=== PATIENT | male | born 1990 ===

== ENCOUNTER 2019-09-11 17:01 | Emergency (ER) | payer SELFPAY ==
[~2019-09-11] VITALS: Ht 180.3 cm; Wt 81.8 kg
[2019-09-11] MEDS ORDERED: QUET200T PO (17:36)
[2019-09-11] MEDS ORDERED: DIVA-76 PO (17:36)
[2019-09-11 21:30] VITALS: BP 124/74
== END 2019-09-11 21:51 | disposition home or self-care (01) ==
LOC: EMS 17:04
DX: T69.022A Immersion foot, left foot, initial encounter (principal); T69.021A Immersion foot, right foot, initial encounter; F20.9 Schizophrenia, unspecified; F17.210 Nicotine dependence, cigarettes, uncomplicated; Z88.8 Allergy status to other drugs, medicaments and biological substances; Z79.899 Other long term (current) drug therapy

== ENCOUNTER 2019-10-01 19:07 | Inpatient (IN) | payer MEDICAID ==
[~2019-10-01] VITALS: Ht 185.4 cm; Wt 91.8 kg
[~2019-10-01 19:07] MED LIST: DIVA-76 PO; QUET200T PO
[2019-10-01] MEDS ORDERED: LORazepam 2 MG TABLET PO PRN (20:15)
[2019-10-01] MEDS ORDERED: ZOLPIDEM TARTRATE 10 MG TABLET PO PRN (20:15)
[2019-10-01] MEDS ORDERED: HALOPERIDOL 5 MG TABLET PO PRN (20:15)
[2019-10-01 20:39] VITALS: BP 122/80
[2019-10-01] MEDS: QUEtiapine FUMARATE 100 MG TABLET PO SCH (20:49)
[2019-10-01] MEDS ORDERED: ACETAMINOPHEN 325 MG TABLET PO PRN (21:00)
[2019-10-01] MEDS ORDERED: IBUPROFEN 600 MG TABLET PO PRN (21:00)
[2019-10-01] MEDS ORDERED: INFLUENZA VIRUS VACCINE QVS 2019-20 (3YR+)/PF 60 MCG/0.5 ML SYRINGE IM ONE (21:30)
[2019-10-01] MEDS: NICOTINE 21 MG/24 HOUR PATCH TD SCH (21:30)
[2019-10-02 08:32] VITALS: BP 147/89
[2019-10-02] MEDS: DIVALPROEX SODIUM 500 MG ER TABLET PO SCH (08:39)
[2019-10-02] MEDS: NICOTINE 21 MG/24 HOUR PATCH TD SCH (08:47)
[2019-10-02 18:04] VITALS: BP 120/90
[2019-10-02] MEDS: QUEtiapine FUMARATE 100 MG TABLET PO SCH (20:17)
[2019-10-03 09:14] VITALS: BP 127/85
[2019-10-03] MEDS: NICOTINE 21 MG/24 HOUR PATCH TD SCH (10:42)
[2019-10-03] MEDS: DIVALPROEX SODIUM 500 MG ER TABLET PO SCH (10:42)
[2019-10-03] MEDS: MAG HYDROX/AL HYDROX/SIMETH ES 30 ML SUSPENSION UDCUP PO PRN ×2 (13:59→14:00)
[2019-10-03 16:33] VITALS: BP 124/82
[2019-10-03] MEDS: QUEtiapine FUMARATE 100 MG TABLET PO SCH (20:16)
[2019-10-04] MEDS: NICOTINE 21 MG/24 HOUR PATCH TD SCH (08:19)
[2019-10-04] MEDS: DIVALPROEX SODIUM 500 MG ER TABLET PO SCH (08:19)
[2019-10-04 09:36] VITALS: BP 143/90
[2019-10-04 17:03] VITALS: BP 97/56
[2019-10-04] MEDS: QUEtiapine FUMARATE 100 MG TABLET PO SCH (20:39)
[2019-10-05] MEDS: NICOTINE 21 MG/24 HOUR PATCH TD SCH (08:25)
[2019-10-05] MEDS: DIVALPROEX SODIUM 500 MG ER TABLET PO SCH (08:25)
[2019-10-05 08:35] VITALS: BP 132/90
[2019-10-05] MEDS ORDERED: DIVA500T52 PO (13:47)
[2019-10-05] MEDS ORDERED: QUET400T PO (13:48)
[2019-10-05 17:05] VITALS: BP 145/83
== END 2019-10-05 17:15 | disposition home or self-care (01) | DRG 885 ==
LOC: 3EC 19:45
PROVIDERS: ADMIT Psychiatry & Neurology Child & Adolescent Psychiatry; ATTEND Psychiatry & Neurology Child & Adolescent Psychiatry
DX: F33.2 Major depressive disorder, recurrent severe without psychotic features (principal); R45.851 Suicidal ideations; F20.9 Schizophrenia, unspecified; F12.90 Cannabis use, unspecified, uncomplicated; M54.5 Low back pain; M25.569 Pain in unspecified knee; Z72.0 Tobacco use
CPT/HCPCS: 90686

== ENCOUNTER 2019-10-07 18:56 | Inpatient (IN) | payer MEDICAID ==
[~2019-10-07] VITALS: Ht 185.4 cm; Wt 94.8 kg
[~2019-10-07 18:56] MED LIST changes: -DIVA-76 PO; +DIVA500T52 PO; -QUET200T PO; +QUET400T PO
[2019-10-07 21:09] LABS: BASOPHILS % (AUTO) 0.5 % (0.0-2.0); EOSINOPHILS % (AUTO) 5.7 % (1.0-6.0); HEMATOCRIT 48.3 % (41-53); HEMOGLOBIN 16.2 g/dL (13.5-17.5); LYMPHOCYTES # (AUTO) 1.3 K/uL (1.0-4.8); LYMPHOCYTES % (AUTO) 11.6 % (22.0-44.0); MEAN CORPUSCULAR HEMOGLOBIN 30.3 pg (26.0-34.0); MEAN CORPUSCULAR HGB CONC 33.6 G/dL (31.0-37.0); MEAN CORPUSCULAR VOLUME 90 fL (80-100); MONOCYTES % (AUTO) 8.9 % (2.0-9.0); NEUTROPHILS % (AUTO) 73.3 % (40.0-70.0); PLATELET COUNT (AUTO) 181 K/uL (150-450); RED BLOOD CELL COUNT(AUTO) 5.36 MIL/uL (4.50-5.90); RED CELL DISTRIBUTION WIDTH 14.2 % (11.5-14.5)
[2019-10-07 22:04] LABS: ALANINE AMINOTRANSFERASE 85 U/L (12-78); ALBUMIN 4.4 g/dL (3.4-5.0); ALKALINE PHOSPHATASE 55 U/L (46-116); ANION GAP 8 mmol/L (8-16); ASPARTATE AMINOTRANSFERASE 18 U/L (15-37); BILIRUBIN,TOTAL 0.6 mg/dL (0.1-1.0); CALCIUM, TOTAL 9.4 mg/dL (8.8-10.5); CARBON DIOXIDE 30 mmol/L (22-29); CHLORIDE 104 mmol/L (98-107); GLOMERULAR FILTR. RATE CALC > 60 mL/min (>60); GLUCOSE,RANDOM 106 mg/dL (70-110); POTASSIUM 4.4 mmol/L (3.5-5.1); SODIUM SERUM 142 mmol/L (136-145); UREA NITROGEN, BLOOD 32 mg/dL (7-18); VALPROIC ACID 45 mcg/mL (50-100)
[2019-10-07 23:06] LABS: AMPHET/METH SCREEN,URINE NEGATIVE (NEGATIVE); BARBITURATE SCREEN, URINE NEGATIVE (NEGATIVE); BENZODIAZEPINES SCREEN,URINE NEGATIVE (NEGATIVE); CANNABINOID SCREEN,URINE NEGATIVE (NEGATIVE); COCAINE SCREEN,URINE NEGATIVE (NEGATIVE); METHADONE SCREEN, URINE NEGATIVE (NEGATIVE); OPIATE SCREEN,URINE NEGATIVE (NEGATIVE); PHENCYCLIDINE SCREEN,URINE NEGATIVE (NEGATIVE)
[2019-10-08] MEDS: ZOLPIDEM TARTRATE 10 MG TABLET PO PRN (01:11)
[2019-10-08] MEDS: HALOPERIDOL 5 MG TABLET PO PRN (01:11)
[2019-10-08] MEDS: LORazepam 2 MG TABLET PO PRN (01:11)
[2019-10-08 02:03] VITALS: BP 134/85
[2019-10-08 06:01] VITALS: BP 132/97
[2019-10-08 08:33] VITALS: BP 121/72
[2019-10-08] MEDS ORDERED: NICOTINE 14 MG/24 HOUR PATCH TD PRN (09:00)
[2019-10-08] MEDS ORDERED: LOPERAMIDE HCL 2 MG CAPSULE PO PRN (09:00)
[2019-10-08] MEDS ORDERED: GuaiFENesin/D-METHORPHAN [SUGAR-FREE] 200-20MG/10 ML SYRUP UDCUP PO PRN (09:00)
[2019-10-08] MEDS ORDERED: CloNIDine HCL 0.1 MG TABLET PO PRN (09:00)
[2019-10-08] MEDS ORDERED: ACETAMINOPHEN 325 MG TABLET PO PRN (09:00)
[2019-10-08] MEDS ORDERED: PETROLATUM,WHITE 28 GM JELLY TP PRN (09:00)
[2019-10-08] MEDS ORDERED: MAGNESIUM HYDROXIDE SUSPENSION 30 ML UDCUP PO PRN (09:00)
[2019-10-08] MEDS ORDERED: MAG HYDROX/AL HYDROX/SIMETH ES 30 ML SUSPENSION UDCUP PO PRN (09:00)
[2019-10-08] MEDS ORDERED: IBUPROFEN 400 MG TABLET PO PRN (09:00)
[2019-10-08] MEDS ORDERED: ALBUTEROL SULFATE HFA 90 MCG/PUFF 8 GM INHALER IH PRN (09:00)
[2019-10-08] MEDS ORDERED: ONDANSETRON HCL 4 MG TABLET PO PRN (09:00)
[2019-10-08] MEDS ORDERED: DOCUSATE SODIUM 100 MG CAPSULE PO PRN (09:00)
[2019-10-08] MEDS: DIVALPROEX SODIUM 500 MG ER TABLET PO SCH (09:55)
[2019-10-08 16:15] VITALS: BP 126/66
[2019-10-08] MEDS: QUEtiapine FUMARATE 200 MG TABLET PO SCH (20:49)
[2019-10-09 06:42] VITALS: BP 130/76
[2019-10-09 08:25] VITALS: BP 126/86
[2019-10-09] MEDS: DIVALPROEX SODIUM 500 MG ER TABLET PO SCH (08:44)
[2019-10-09 16:09] VITALS: BP 129/75
[2019-10-09] MEDS: QUEtiapine FUMARATE 200 MG TABLET PO SCH (20:30)
[2019-10-09] MEDS: ZOLPIDEM TARTRATE 10 MG TABLET PO PRN (22:21)
[2019-10-10 05:56] VITALS: BP 118/57
[2019-10-10] MEDS: DIVALPROEX SODIUM 500 MG ER TABLET PO SCH (08:21)
[2019-10-10 08:32] VITALS: BP 118/69
[2019-10-10 16:15] VITALS: BP 116/74
[2019-10-10] MEDS: LORazepam 2 MG TABLET PO PRN (19:11)
[2019-10-10] MEDS: QUEtiapine FUMARATE 200 MG TABLET PO SCH (20:57)
[2019-10-11 06:25] VITALS: BP 114/67
[2019-10-11 08:00] VITALS: BP 131/78
[2019-10-11] MEDS: DIVALPROEX SODIUM 500 MG ER TABLET PO SCH (08:50)
[2019-10-11 16:13] VITALS: BP 117/55
[2019-10-11] MEDS: HALOPERIDOL 5 MG TABLET PO PRN (16:43)
[2019-10-11] MEDS: LORazepam 2 MG TABLET PO PRN ×2 (16:43→20:43)
[2019-10-11 20:17] VITALS: BP 133/82
[2019-10-11] MEDS: QUEtiapine FUMARATE 200 MG TABLET PO SCH (20:24)
[2019-10-11] MEDS: ZOLPIDEM TARTRATE 10 MG TABLET PO PRN (20:25)
[2019-10-12 02:00] VITALS: BP 142/92
[2019-10-12 08:18] VITALS: BP 139/63
[2019-10-12] MEDS: DIVALPROEX SODIUM 500 MG ER TABLET PO SCH (09:03)
[2019-10-12 16:00] VITALS: BP 125/76
[2019-10-12] MEDS: HALOPERIDOL 5 MG TABLET PO PRN (16:08)
[2019-10-12] MEDS: LORazepam 2 MG TABLET PO PRN (16:08)
[2019-10-12] MEDS: QUEtiapine FUMARATE 200 MG TABLET PO SCH (20:26)
[2019-10-12] MEDS: ZOLPIDEM TARTRATE 10 MG TABLET PO PRN (20:26)
[2019-10-13 00:02] VITALS: BP 144/81
[2019-10-13 08:15] VITALS: BP 130/73
[2019-10-13] MEDS: DIVALPROEX SODIUM 500 MG ER TABLET PO SCH (08:52)
[2019-10-13 16:00] VITALS: BP 140/90
[2019-10-13] MEDS: LORazepam 2 MG TABLET PO PRN (16:28)
[2019-10-13] MEDS: HALOPERIDOL 5 MG TABLET PO PRN (16:28)
[2019-10-13] MEDS: QUEtiapine FUMARATE 200 MG TABLET PO SCH (21:12)
[2019-10-14] VITALS: BP 141/89
[2019-10-14] MEDS: ZOLPIDEM TARTRATE 10 MG TABLET PO PRN (00:34)
[2019-10-14 08:00] VITALS: BP 131/86
[2019-10-14] MEDS: DIVALPROEX SODIUM 500 MG ER TABLET PO SCH (08:18)
[2019-10-14 16:07] VITALS: BP 128/77
[2019-10-14] MEDS: QUEtiapine FUMARATE 200 MG TABLET PO SCH (20:08)
[2019-10-15 05:41] VITALS: BP 114/63
[2019-10-15] MEDS: DIVALPROEX SODIUM 500 MG ER TABLET PO SCH (08:01)
[2019-10-15 08:24] VITALS: BP 143/72
[2019-10-15 16:11] VITALS: BP 137/87
[2019-10-15] MEDS: QUEtiapine FUMARATE 200 MG TABLET PO SCH (21:22)
[2019-10-16 06:36] VITALS: BP 128/79
[2019-10-16] MEDS: DIVALPROEX SODIUM 500 MG ER TABLET PO SCH (08:03)
[2019-10-16 16:07] VITALS: BP 121/78
[2019-10-16] MEDS ORDERED: HALOPERIDOL LACTATE 5 MG/ML VIAL ONE (16:46)
[2019-10-16] MEDS ORDERED: LORazepam 2 MG/ML VIAL ONE (16:46)
[2019-10-16] MEDS ORDERED: HALOPERIDOL LACTATE 5 MG/ML VIAL IM ONE (17:00)
[2019-10-16] MEDS ORDERED: LORazepam 2 MG/ML VIAL IM ONE (17:00)
[2019-10-16] MEDS: QUEtiapine FUMARATE 200 MG TABLET PO SCH (20:53)
[2019-10-17 08:07] VITALS: BP 125/86
[2019-10-17] MEDS: DIVALPROEX SODIUM 500 MG ER TABLET PO SCH (09:28)
[2019-10-17 16:03] VITALS: BP 138/78
[2019-10-17] MEDS: LORazepam 2 MG TABLET PO PRN (16:42)
[2019-10-17] MEDS: HALOPERIDOL 5 MG TABLET PO PRN (16:42)
[2019-10-17] MEDS: QUEtiapine FUMARATE 200 MG TABLET PO SCH (20:30)
[2019-10-17] MEDS: ZOLPIDEM TARTRATE 10 MG TABLET PO PRN (20:30)
[2019-10-18 06:34] VITALS: BP 118/80
[2019-10-18 08:11] VITALS: BP 110/69
[2019-10-18] MEDS: DIVALPROEX SODIUM 500 MG ER TABLET PO SCH (08:22)
[2019-10-18] MEDS: HALOPERIDOL 5 MG TABLET PO PRN (14:02)
[2019-10-18] MEDS: LORazepam 2 MG TABLET PO PRN (14:02)
[2019-10-18 16:05] VITALS: BP 152/85
[2019-10-18] MEDS: QUEtiapine FUMARATE 200 MG TABLET PO SCH (20:36)
[2019-10-18] MEDS: ZOLPIDEM TARTRATE 10 MG TABLET PO PRN (20:36)
[2019-10-19 02:27] VITALS: BP 134/83
[2019-10-19 08:18] VITALS: BP 125/77
[2019-10-19] MEDS: DIVALPROEX SODIUM 500 MG ER TABLET PO SCH (08:37)
[2019-10-19 16:06] VITALS: BP 137/79
[2019-10-19] MEDS: QUEtiapine FUMARATE 200 MG TABLET PO SCH (21:19)
[2019-10-20 02:12] VITALS: BP 129/79
[2019-10-20 08:08] VITALS: BP 138/80
[2019-10-20] MEDS: DIVALPROEX SODIUM 500 MG ER TABLET PO SCH (08:43)
[2019-10-20] MEDS: LORazepam 2 MG TABLET PO PRN ×2 (08:44→16:23)
[2019-10-20] MEDS: HALOPERIDOL 5 MG TABLET PO PRN ×2 (08:44→16:23)
[2019-10-20 16:05] VITALS: BP 133/77
[2019-10-20] MEDS: QUEtiapine FUMARATE 200 MG TABLET PO SCH (20:45)
[2019-10-20] MEDS: ZOLPIDEM TARTRATE 10 MG TABLET PO PRN (20:45)
[2019-10-21 05:52] VITALS: BP 125/65
[2019-10-21] MEDS: DIVALPROEX SODIUM 500 MG ER TABLET PO SCH (08:25)
[2019-10-21 08:35] VITALS: BP 120/69
[2019-10-21] MEDS: LORazepam 2 MG TABLET PO PRN (16:16)
[2019-10-21] MEDS: HALOPERIDOL 5 MG TABLET PO PRN (16:16)
[2019-10-21 17:05] VITALS: BP 151/73
[2019-10-21] MEDS: QUEtiapine FUMARATE 200 MG TABLET PO SCH (20:50)
[2019-10-21] MEDS: ZOLPIDEM TARTRATE 10 MG TABLET PO PRN (20:50)
[2019-10-22 06:40] VITALS: BP 127/89
[2019-10-22] MEDS: DIVALPROEX SODIUM 500 MG ER TABLET PO SCH (08:27)
[2019-10-22] MEDS: HALOPERIDOL 5 MG TABLET PO PRN ×2 (08:28→15:26)
[2019-10-22] MEDS: LORazepam 2 MG TABLET PO PRN ×2 (08:28→15:26)
[2019-10-22 08:40] VITALS: BP 110/66
[2019-10-22 16:00] VITALS: BP 131/81
[2019-10-22] MEDS: ZOLPIDEM TARTRATE 10 MG TABLET PO PRN (20:39)
[2019-10-22] MEDS: QUEtiapine FUMARATE 200 MG TABLET PO SCH (20:39)
[2019-10-23 04:43] VITALS: BP 126/71
[2019-10-23 08:23] VITALS: BP 91/60
[2019-10-23] MEDS: DIVALPROEX SODIUM 500 MG ER TABLET PO SCH (08:41)
[2019-10-23] MEDS: HALOPERIDOL 5 MG TABLET PO PRN (08:41)
[2019-10-23] MEDS: LORazepam 2 MG TABLET PO PRN (08:41)
[2019-10-23 17:16] VITALS: BP 138/74
[2019-10-23] MEDS: QUEtiapine FUMARATE 200 MG TABLET PO SCH (21:37)
[2019-10-24 06:18] VITALS: BP 107/72
[2019-10-24 08:10] VITALS: BP 138/65
[2019-10-24] MEDS: DIVALPROEX SODIUM 500 MG ER TABLET PO SCH (08:46)
[2019-10-24] MEDS: HALOPERIDOL 5 MG TABLET PO PRN ×2 (08:46→16:17)
[2019-10-24] MEDS: LORazepam 2 MG TABLET PO PRN ×2 (08:46→16:17)
[2019-10-24 16:41] VITALS: BP 138/84
[2019-10-24] MEDS: QUEtiapine FUMARATE 200 MG TABLET PO SCH (20:49)
[2019-10-25 01:45] VITALS: BP 129/76
[2019-10-25 08:15] VITALS: BP 140/62
[2019-10-25] MEDS: DIVALPROEX SODIUM 500 MG ER TABLET PO SCH (08:38)
[2019-10-25 16:07] VITALS: BP 128/72
[2019-10-25] MEDS: LORazepam 2 MG TABLET PO PRN (17:38)
[2019-10-25] MEDS: HALOPERIDOL 5 MG TABLET PO PRN (17:38)
[2019-10-25] MEDS: QUEtiapine FUMARATE 200 MG TABLET PO SCH (21:59)
[2019-10-26 05:26] VITALS: BP 128/69
[2019-10-26 08:13] VITALS: BP 125/88
[2019-10-26] MEDS: DIVALPROEX SODIUM 500 MG ER TABLET PO SCH (08:33)
[2019-10-26] MEDS: LORazepam 2 MG TABLET PO PRN (13:51)
[2019-10-26] MEDS: HALOPERIDOL 5 MG TABLET PO PRN (13:51)
[2019-10-26] MEDS ORDERED: DIVA500T52 PO (14:23)
[2019-10-26] MEDS ORDERED: QUET200T PO (14:23)
== END 2019-10-26 21:24 | disposition home or self-care (01) | DRG 750 ==
LOC: EMS 18:57 → B3A 10-08 00:30
PROVIDERS: ADMIT Psychiatry & Neurology Child & Adolescent Psychiatry; ATTEND Psychiatry & Neurology Child & Adolescent Psychiatry
DX: F25.1 Schizoaffective disorder, depressive type (principal); R45.851 Suicidal ideations; G40.909 Epilepsy, unspecified, not intractable, without status epilepticus; F10.10 Alcohol abuse, uncomplicated; F15.10 Other stimulant abuse, uncomplicated; Z79.899 Other long term (current) drug therapy; F41.9 Anxiety disorder, unspecified; F17.210 Nicotine dependence, cigarettes, uncomplicated
CPT/HCPCS: 87081; G0480; J1630; J2060

== ENCOUNTER 2020-03-19 23:40 | Inpatient (IN) | payer MEDICARE, MEDICAID ==
[~2020-03-19] VITALS: Ht 193 cm; Wt 100.2 kg
[~2020-03-19 23:40] MED LIST changes: +DIVA-80 PO; -DIVA500T52 PO; +QUET200T PO; -QUET400T PO
[2020-03-20] MEDS ORDERED: ZOLPIDEM TARTRATE 10 MG TABLET PO PRN (01:15)
[2020-03-20 01:22] VITALS: BP 130/85
[2020-03-20 02:58] VITALS: BP 138/85
[2020-03-20] MEDS ORDERED: MAG HYDROX/AL HYDROX/SIMETH ES 30 ML SUSPENSION UDCUP PO PRN (07:30)
[2020-03-20] MEDS ORDERED: NICOTINE 14 MG/24 HOUR PATCH TD PRN (07:30)
[2020-03-20] MEDS ORDERED: ALBUTEROL SULFATE HFA 90 MCG/PUFF 8 GM INHALER IH PRN (07:30)
[2020-03-20] MEDS ORDERED: GuaiFENesin/D-METHORPHAN [SUGAR-FREE] 200-20MG/10 ML SYRUP UDCUP PO PRN (07:30)
[2020-03-20] MEDS ORDERED: LOPERAMIDE HCL 2 MG CAPSULE PO PRN (07:30)
[2020-03-20] MEDS ORDERED: PETROLATUM,WHITE 28 GM JELLY TP PRN (07:30)
[2020-03-20] MEDS ORDERED: MAGNESIUM HYDROXIDE SUSPENSION 30 ML UDCUP PO PRN (07:30)
[2020-03-20] MEDS ORDERED: DOCUSATE SODIUM 100 MG CAPSULE PO PRN (07:30)
[2020-03-20] MEDS ORDERED: ACETAMINOPHEN 325 MG TABLET PO PRN (07:30)
[2020-03-20] MEDS ORDERED: IBUPROFEN 400 MG TABLET PO PRN (07:30)
[2020-03-20] MEDS ORDERED: CloNIDine HCL 0.1 MG TABLET PO PRN (07:30)
[2020-03-20] MEDS ORDERED: ONDANSETRON HCL 4 MG TABLET PO PRN (07:30)
[2020-03-20 08:27] VITALS: BP 138/89
[2020-03-20 16:17] VITALS: BP 107/74
[2020-03-20] MEDS: DIVALPROEX SODIUM 500 MG DR TABLET PO SCH (21:04)
[2020-03-20] MEDS: QUEtiapine FUMARATE 200 MG TABLET PO SCH (21:04)
[2020-03-21 00:02] VITALS: BP 110/78
[2020-03-21 07:30] VITALS: BP 113/76
[2020-03-21 08:03] LABS: BASOPHILS % (AUTO) 0.7 % (0.0-2.0); EOSINOPHILS % (AUTO) 9.9 % (1.0-6.0); HEMATOCRIT 39.7 % (41-53); HEMOGLOBIN 13.4 g/dL (13.5-17.5); LYMPHOCYTES # (AUTO) 4.1 K/uL (1.0-4.8); LYMPHOCYTES % (AUTO) 57.2 % (22.0-44.0); MEAN CORPUSCULAR HEMOGLOBIN 29.4 pg (26.0-34.0); MEAN CORPUSCULAR HGB CONC 33.7 G/dL (31.0-37.0); MEAN CORPUSCULAR VOLUME 87 fL (80-100); MONOCYTES # (AUTO) 0.7 K/uL (0.1-1.0); MONOCYTES % (AUTO) 9.6 % (2.0-9.0); NEUTROPHILS # (AUTO) 1.6 K/uL (1.8-7.7); NEUTROPHILS % (AUTO) 22.6 % (40.0-70.0); PLATELET COUNT (AUTO) 199 K/uL (150-450); RED BLOOD CELL COUNT(AUTO) 4.54 MIL/uL (4.50-5.90); RED CELL DISTRIBUTION WIDTH 13.7 % (11.5-14.5)
[2020-03-21 08:24] LABS: HEMOGLOBIN A1C 5.1 % (3.8-5.6)
[2020-03-21 08:35] LABS: ALANINE AMINOTRANSFERASE 21 U/L (12-78); ALKALINE PHOSPHATASE 42 U/L (46-116); ANION GAP 9 mmol/L (8-16); ASPARTATE AMINOTRANSFERASE 11 U/L (15-37); BILIRUBIN,TOTAL 0.3 mg/dL (0.1-1.0); CALCIUM, TOTAL 8.2 mg/dL (8.8-10.5); CARBON DIOXIDE 26 mmol/L (22-29); CHLORIDE 109 mmol/L (98-107); CHOL/HDL RATIO 2.4 (4.2-7.3); CHOLESTEROL 116 mg/dL (131-200); CREATININE 0.88 mg/dL (0.60-1.30); FREE T4 (FREE THYROXINE) 1.03 ng/dL (0.76-1.46); GLOMERULAR FILTR. RATE CALC > 60 mL/min (>60); GLUCOSE,RANDOM 90 mg/dL (70-110); HDL CHOLESTEROL 48 mg/dL (40-60); LDL CHOL (CALC.) 59 mg/dL (0-130); POTASSIUM 4.1 mmol/L (3.5-5.1); SODIUM SERUM 144 mmol/L (136-145); THYROID STIMULATING HORMONE 1.11 uIU/mL (0.36-3.74); TOTAL PROTEIN, SERUM 5.9 g/dL (6.4-8.2); TRIGLYCERIDES 47 mg/dL (15-150); UREA NITROGEN, BLOOD 17 mg/dL (7-18)
[2020-03-21 08:41] LABS: APPEARANCE,URINE TURBID (CLEAR); BILIRUBIN,URINE NEGATIVE (NEGATIVE); GLUCOSE, URINE (UA) NEGATIVE (NEGATIVE); KETONES,URINE NEGATIVE (NEGATIVE); LEUKOCYTE ESTERASE ,URINE NEGATIVE (NEGATIVE); NITRATE,URINE NEGATIVE (NEGATIVE); OCCULT BLOOD,URINE NEGATIVE (NEGATIVE); PH,URINE 5.5 (5.0-8.0); PROTEIN,URINE NEGATIVE (NEGATIVE); UROBILINOGEN,URINE 0.2 mg/dL (<=1.0)
[2020-03-21 16:04] VITALS: BP 116/68
[2020-03-21] MEDS: DIVALPROEX SODIUM 500 MG DR TABLET PO SCH (20:35)
[2020-03-21] MEDS: QUEtiapine FUMARATE 200 MG TABLET PO SCH (20:36)
[2020-03-22 00:01] VITALS: BP 116/70
[2020-03-22 08:13] VITALS: BP 110/62
[2020-03-22 16:27] VITALS: BP 119/83
[2020-03-22] MEDS: QUEtiapine FUMARATE 200 MG TABLET PO SCH (20:41)
[2020-03-22] MEDS: DIVALPROEX SODIUM 500 MG DR TABLET PO SCH (20:41)
[2020-03-23 00:39] VITALS: BP 118/78
[2020-03-23 08:06] VITALS: BP 139/86
[2020-03-23] MEDS: HALOPERIDOL 5 MG TABLET PO PRN (13:42)
[2020-03-23] MEDS: LORazepam 2 MG TABLET PO PRN (13:42)
[2020-03-23 16:00] VITALS: BP 111/69
[2020-03-23] MEDS: DIVALPROEX SODIUM 500 MG DR TABLET PO SCH (20:41)
[2020-03-23] MEDS: QUEtiapine FUMARATE 200 MG TABLET PO SCH (20:41)
[2020-03-24 04:00] VITALS: BP 116/64
[2020-03-24 08:00] VITALS: BP 115/83
[2020-03-24 16:03] VITALS: BP 135/67
[2020-03-24] MEDS ORDERED: LORazepam 2 MG/ML VIAL ONE (18:59)
[2020-03-24] MEDS ORDERED: HALOPERIDOL LACTATE 5 MG/ML VIAL ONE (18:59)
[2020-03-24] MEDS ORDERED: HALOPERIDOL LACTATE 5 MG/ML VIAL IM ONE (19:00)
[2020-03-24] MEDS ORDERED: LORazepam 2 MG/ML VIAL IM ONE (19:00)
[2020-03-24] MEDS ORDERED: DiphenhydrAMINE HCL 50 MG/ML VIAL IM ONE (19:00)
[2020-03-24] MEDS: DIVALPROEX SODIUM 500 MG DR TABLET PO SCH (21:00)
[2020-03-24] MEDS: QUEtiapine FUMARATE 200 MG TABLET PO SCH (21:00)
[2020-03-25 05:32] VITALS: BP 123/79
[2020-03-25 08:21] VITALS: BP 131/81
[2020-03-25 09:47] LABS: % IRON SATURATION 22.7 % (30-44)
[2020-03-25 16:25] VITALS: BP 134/78
[2020-03-25] MEDS: DIVALPROEX SODIUM 500 MG DR TABLET PO SCH (20:16)
[2020-03-25] MEDS: QUEtiapine FUMARATE 200 MG TABLET PO SCH (20:17)
[2020-03-26 00:25] VITALS: BP 132/80
[2020-03-26 08:36] VITALS: BP 134/80
[2020-03-26 16:21] VITALS: BP 125/76
[2020-03-26] MEDS: DIVALPROEX SODIUM 500 MG DR TABLET PO SCH (20:30)
[2020-03-26] MEDS: QUEtiapine FUMARATE 200 MG TABLET PO SCH (20:30)
[2020-03-27 00:30] VITALS: BP 122/78
[2020-03-27] MEDS ORDERED: LORazepam 2 MG/ML VIAL IM ONE (08:05)
[2020-03-27] MEDS ORDERED: HALOPERIDOL LACTATE 5 MG/ML VIAL IM ONE (08:05)
[2020-03-27] MEDS ORDERED: DiphenhydrAMINE HCL 50 MG/ML VIAL IM ONE (08:05)
[2020-03-27] MEDS ORDERED: LORazepam 2 MG/ML VIAL ONE (08:06)
[2020-03-27] MEDS ORDERED: DiphenhydrAMINE HCL 50 MG/ML VIAL ONE (08:06)
[2020-03-27] MEDS ORDERED: HALOPERIDOL LACTATE 5 MG/ML VIAL ONE (08:06)
[2020-03-27 09:40] VITALS: BP 152/81
[2020-03-27 16:29] VITALS: BP 108/68
[2020-03-27] MEDS: DIVALPROEX SODIUM 500 MG DR TABLET PO SCH (20:23)
[2020-03-27] MEDS: QUEtiapine FUMARATE 300 MG TABLET PO SCH (20:23)
[2020-03-28 00:30] VITALS: BP 112/70
[2020-03-28] MEDS: LORazepam 2 MG TABLET PO PRN (08:10)
[2020-03-28] MEDS: HALOPERIDOL 5 MG TABLET PO PRN (08:10)
[2020-03-28 08:32] VITALS: BP 155/93
[2020-03-28 11:00] VITALS: BP 139/87
[2020-03-28 16:11] VITALS: BP 135/80
[2020-03-28] MEDS: DIVALPROEX SODIUM 500 MG DR TABLET PO SCH (20:36)
[2020-03-28] MEDS: QUEtiapine FUMARATE 300 MG TABLET PO SCH (20:36)
[2020-03-29] VITALS: BP 122/77
[2020-03-29 08:58] VITALS: BP 114/80
[2020-03-29] MEDS: LORazepam 2 MG TABLET PO PRN (15:52)
[2020-03-29 16:26] VITALS: BP 126/74
[2020-03-29] MEDS: DIVALPROEX SODIUM 500 MG DR TABLET PO SCH (20:18)
[2020-03-29] MEDS: QUEtiapine FUMARATE 300 MG TABLET PO SCH (20:18)
[2020-03-30 08:25] VITALS: BP 132/95
[2020-03-30 16:11] VITALS: BP 124/79
[2020-03-30] MEDS: QUEtiapine FUMARATE 300 MG TABLET PO SCH (20:31)
[2020-03-30] MEDS: DIVALPROEX SODIUM 500 MG DR TABLET PO SCH (20:31)
[2020-03-31 01:59] VITALS: BP 110/63
[2020-03-31 08:19] VITALS: BP 112/72
[2020-03-31 16:38] VITALS: BP 130/87
[2020-03-31] MEDS: QUEtiapine FUMARATE 300 MG TABLET PO SCH (20:42)
[2020-03-31] MEDS: DIVALPROEX SODIUM 500 MG DR TABLET PO SCH (20:42)
[2020-04-01 01:42] VITALS: BP 136/79
[2020-04-01] MEDS: LORazepam 2 MG TABLET PO PRN (08:11)
[2020-04-01] MEDS: HALOPERIDOL 5 MG TABLET PO PRN (08:11)
[2020-04-01 08:39] VITALS: BP 132/81
[2020-04-01 16:00] VITALS: BP 124/79
[2020-04-01] MEDS: DIVALPROEX SODIUM 500 MG DR TABLET PO SCH (20:11)
[2020-04-01] MEDS: QUEtiapine FUMARATE 300 MG TABLET PO SCH (20:12)
[2020-04-02 04:14] VITALS: BP 122/80
[2020-04-02] MEDS: LORazepam 2 MG TABLET PO PRN (08:14)
[2020-04-02] MEDS: HALOPERIDOL 5 MG TABLET PO PRN (08:14)
[2020-04-02 08:37] VITALS: BP 114/72
[2020-04-02 16:26] VITALS: BP 127/82
[2020-04-02] MEDS: QUEtiapine FUMARATE 300 MG TABLET PO SCH (20:28)
[2020-04-02] MEDS: DIVALPROEX SODIUM 500 MG DR TABLET PO SCH (20:28)
[2020-04-03 00:52] VITALS: BP 116/68
[2020-04-03 08:06] VITALS: BP 116/91
[2020-04-03 16:11] VITALS: BP 127/71
[2020-04-03] MEDS: DIVALPROEX SODIUM 500 MG DR TABLET PO SCH (20:58)
[2020-04-03] MEDS: QUEtiapine FUMARATE 300 MG TABLET PO SCH (20:58)
[2020-04-04] VITALS: BP 125/73
[2020-04-04 08:27] VITALS: BP 152/87
[2020-04-04 16:10] VITALS: BP 142/92
[2020-04-04] MEDS: LORazepam 2 MG TABLET PO PRN ×2 (16:10→21:02)
[2020-04-04] MEDS: HALOPERIDOL 5 MG TABLET PO PRN (16:10)
[2020-04-04] MEDS ORDERED: HALOPERIDOL LACTATE 5 MG/ML VIAL ONE (16:14)
[2020-04-04] MEDS ORDERED: DiphenhydrAMINE HCL 50 MG/ML VIAL ONE (16:15)
[2020-04-04] MEDS ORDERED: LORazepam 2 MG/ML VIAL ONE (16:15)
[2020-04-04] MEDS ORDERED: DiphenhydrAMINE HCL 50 MG/ML VIAL IM ONE (16:30)
[2020-04-04] MEDS ORDERED: LORazepam 2 MG/ML VIAL IM ONE (16:30)
[2020-04-04] MEDS ORDERED: HALOPERIDOL LACTATE 5 MG/ML VIAL IM ONE (16:30)
[2020-04-04] MEDS: QUEtiapine FUMARATE 300 MG TABLET PO SCH (21:01)
[2020-04-04] MEDS: DIVALPROEX SODIUM 500 MG DR TABLET PO SCH (21:02)
[2020-04-05 06:58] VITALS: BP 116/76
[2020-04-05 08:00] VITALS: BP 157/87
[2020-04-05 16:05] VITALS: BP 124/80
[2020-04-05] MEDS: DIVALPROEX SODIUM 500 MG DR TABLET PO SCH (20:24)
[2020-04-05] MEDS: QUEtiapine FUMARATE 300 MG TABLET PO SCH (20:24)
[2020-04-06 04:47] VITALS: BP 127/70
[2020-04-06 08:17] VITALS: BP 125/93
[2020-04-06] MEDS: MULTIVITAMINS WITH IRON TABLET PO SCH (08:43)
[2020-04-06 16:06] VITALS: BP 144/84
[2020-04-06] MEDS: QUEtiapine FUMARATE 300 MG TABLET PO SCH (20:25)
[2020-04-06] MEDS: DIVALPROEX SODIUM 500 MG DR TABLET PO SCH (20:25)
[2020-04-07 06:08] VITALS: BP 129/83
[2020-04-07] MEDS: MULTIVITAMINS WITH IRON TABLET PO SCH (08:05)
[2020-04-07 08:29] VITALS: BP 128/80
[2020-04-07] MEDS ORDERED: LORazepam 2 MG TABLET PO PRN (11:00)
[2020-04-07] MEDS ORDERED: ZOLPIDEM TARTRATE 10 MG TABLET PO PRN (11:00)
[2020-04-07 16:01] VITALS: BP 109/87
[2020-04-07] MEDS: QUEtiapine FUMARATE 300 MG TABLET PO SCH (20:05)
[2020-04-07] MEDS: DIVALPROEX SODIUM 500 MG DR TABLET PO SCH (20:05)
[2020-04-08 05:20] VITALS: BP 122/78
[2020-04-08] MEDS: MULTIVITAMINS WITH IRON TABLET PO SCH (08:25)
[2020-04-08] MEDS ORDERED: QUET300T2 PO (08:34)
[2020-04-08] MEDS ORDERED: DIVA-80 PO (08:37)
[2020-04-08 08:50] VITALS: BP 114/80
== END 2020-04-08 09:40 | disposition home or self-care (01) | DRG 885 ==
LOC: B2X 03-20 01:09
PROVIDERS: ADMIT Psychiatry & Neurology Psychiatry; ATTEND Psychiatry & Neurology Psychiatry
DX: F25.9 Schizoaffective disorder, unspecified (principal); R45.851 Suicidal ideations; G40.909 Epilepsy, unspecified, not intractable, without status epilepticus; F10.10 Alcohol abuse, uncomplicated; F12.10 Cannabis abuse, uncomplicated; D64.9 Anemia, unspecified; Z59.0 Homelessness; Z88.1 Allergy status to other antibiotic agents; Z88.8 Allergy status to other drugs, medicaments and biological substances; F41.9 Anxiety disorder, unspecified; F19.10 Other psychoactive substance abuse, uncomplicated; Y90.9 Presence of alcohol in blood, level not specified; Z88.0 Allergy status to penicillin
CPT/HCPCS: 83036; 83540; 83550; 84439; 84443; 87081; J1200; J1630; J2060